=== PATIENT | female | born 1980 | race Caucasian/White ===

== ENCOUNTER 2019-05-19 13:40 | Inpatient (IN) | payer OTHER, MEDICAID, SELFPAY ==
[2019-05-19] VITALS (11 sets, daily range): BP systolic 95–119; BP diastolic 45–80; PULSE 87–113; RESP 12–113; TEMP 36.3–36.7; O2SAT 91–100; BMI 32.9; BMI 30.7
--- NOTE | 2019-05-19 14:15 | ED.OVERDOSE ---
HPI - Overdose General Chief Complaint: Toxicology Problem Stated Complaint: Took too any Asprin Time Seen by Provider: 05/19/19 14:09 Source: patient Mode of arrival: ambulatory Limitations: no limitations History of Present Illness HPI Narrative: This is a 39-year-old female who comes to the emergency department with complaint of aspirin overdose. Patient states between 930 and 10:00 a.m. she took 40-50 tablets 324 mg aspirin. Patient states she took this intentionally in order to kill herself. She states that she is requesting that decision at this time. She is complaining of ringing in her ear, decreased hearing on the right and tingling in her extremity and face. Patient has felt nauseated. She had 1 episode of vomiting with a little bit of blood. She denies any shortness of breath or chest pain, no diarrhea or constipation. No urinary symptoms. No new weakness that she is appreciating at this time. She states that she has a history of psychiatric issues. She also has issues with substance abuse and used methamphetamines 2 days previously. She has been off of her psychiatric medications recently. She also used to take levothyroxine regularly. She little allergies to antibiotics. Positive for tobacco, positive for alcohol but not regularly. Related Data Home Medications Medication Instructions Recorded Confirmed fluoxetine [Prozac] 80 mg PO DAILY 05/19/19 05/19/19 levothyroxine 25 mcg PO DAILY 05/19/19 05/19/19 lorazepam [Ativan] 1 mg PO BEDTIME PRN 05/19/19 05/19/19 Allergies Allergy/AdvReac Type Severity Reaction Status Date / Time amoxicillin Allergy Hives Verified 05/19/19 18:03 Penicillins Allergy Verified 05/19/19 13:45 sulfamethoxazole Allergy Verified 05/19/19 13:45 [From Bactrim] trimethoprim [From Bactrim] Allergy Verified 05/19/19 13:45 Review of Systems Review of Systems ROS Unobtainable: All systems reviewed & are unremarkable except as noted in HPI and below Constitutional Constitutional: Reports anorexia, Denies chills, Denies fever(s), Reports headache(s) (mild), Denies lethargy and Denies weakness ENT Ears, Nose, Mouth, and Throat: Reports abnormal hearing, Denies dizziness, Reports headache(s) (mild) and Reports tinnitus Cardiovascular Cardiovascular: Denies chest pain, Denies chest pain at rest, Denies diaphoresis, Denies syncope, Denies edema, Denies irregular heart rhythm, Denies lightheadedness, Denies palpitations, Denies dyspnea, Denies dyspnea on exertion and Denies orthopnea Respiratory Respiratory: Denies change in phlegm color, Denies chest congestion, Denies cough, Denies dyspnea, Denies dyspnea on exertion, Denies stridor and Denies wheezing Gastrointestinal Gastrointestinal: Denies abdominal pain, Denies hematochezia, Denies change in bowel habits, Denies constipation, Denies diarrhea, Reports nausea, Reports vomiting (1) and Reports hematemesis (small amt of red in emesis x 1) Genitourinary Genitourinary: Denies hematuria, Denies urinary frequency, Denies dysuria, Denies flank pain, Denies urinary incontinence, Denies urinary hesitancy and Denies urinary urgency Musculoskeletal Musculoskeletal: Reports tingling (extremity and face) Integumentary/Breasts Skin/Breast: Denies rash and Denies unusual bruising Neurologic Neurologic: Reports as per HPI, Reports abnormal hearing, Denies confusion, Denies dizziness, Denies syncope, Reports headache(s) (mild), Reports tingling (extremity and face) and Denies weakness Psychiatric Psychiatric: Reports as per HPI, Denies confusion, Denies hallucinations, Denies homicidal ideation and Reports suicidal ideation (suicidal attempt) Endocrine Endocrine: Denies palpitations Allergic/Immunologic Allergic/Immunologic: Denies wheezing [facility] Medical History Anxiety (Acute) Depression (Acute) Miscarriage (Acute) Neck pain, chronic (Acute) PTSD (post-traumatic stress disorder) (Acute) Surgical History History of carpal tunnel surgery (Acute) Social History household members: significant other Smoking Status: Current every day smoker alcohol intake: never Social History household members: significant other Smoking Status: Current every day smoker alcohol intake: never Exam Narrative Exam Narrative: GENERAL: Alert and oriented x three, well-nourished female in mild distress. HEENT: Head normocephalic, atraumatic, EOMI, negative for nystagmus, pupils reactive, face symmetric, moist mucous membranes NECK: Supple, full range of motion CARDIOVASCULAR: Regular rate and rhythm without murmurs, rubs or gallops. RESPIRATORY: Breath sounds equal bilaterally, no wheezes rales or rhonchi. No tachypnea or accessory muscle use. ABDOMEN: Soft, nontender. Normoactive bowel sounds all 4 quadrants. No guarding or rebound, rigidity, no mass : No CVA tenderness EXTREMITIES: Normal range of motion, no clubbing or edema. 2+ pulses upper and lower extremities. Neurovascularly intact NEUROLOGICAL: Cranial nerves II through XII grossly intact. Moving all extremities SKIN: Warm, dry, no petechiae, no rashes or lesions. Initial Vital Signs Initial Vital Signs: Vital Signs Temperature 97.3 F L 05/19/19 13:45 Pulse Rate 103 H 05/19/19 13:45 Respiratory Rate 26 H 05/19/19 13:45 Blood Pressure 119/80 05/19/19 13:45 Pulse Oximetry 97 05/19/19 13:45 Scores GCS Oscar coma scale eye opening: Spontaneous Oscar coma scale verbal response: Orientated Oscar coma scale motor response: Obey commands [place] coma scale total score: 15 Course Orders Ordered: ED Orders 05/19/19 14:00 Acetaminophen Stat Complete Blood Count AUTO DIFF Stat Comprehensive Metabolic Panel Stat Ethanol (ETOH) Stat Hepatic (Liver) Panel Stat Lipase Stat Test Urine Stat Salicylate Stat Troponin & CK Cardiac Panel Stat Urinalysis Sreen (Dip Only) Stat Urine Drug Screen, Rapid Stat 05/19/19 14:28 XR chest 1V Stat 05/19/19 14:49 Arterial Blood Gas Stat 05/19/19 15:00 Lactate (Lactic Acid) Stat Prothrombin Time INR Stat 05/19/19 16:09 Salicylate Stat 05/19/19 20:00 Salicylate Stat Sodium Chloride (Normal Saline 0.9%) 1,000 mls @ 1,000 mls/hr IV BOLUS PRN PRN Reason: Fluid replacement Last Infusion: 05/19/19 16:31 Dose: 0 mls/hr Documented by: Admin: 05/19/19 14:50 Dose: 1,000 mls/hr Documented by: FAYE Sodium Bicarbonate 150 meq/Potassium Chloride 40 meq/Dextrose 1,170 mls @ 200 mls/hr IV CONT COLETTE Last Infusion: 05/19/19 17:33 Dose: 0 mls/hr Documented by: FAYE Cosigned by: VIJAYA Admin: 05/19/19 16:32 Dose: 200 mls/hr Documented by: ESTHER Cosigned by: FAYE Ondansetron HCl (Zofran) 4 mg IV Q4HR PRN PRN Reason: Nausea And Vomiting Discontinued Medications Sodium Chloride (Normal Saline 0.9%) 1,000 mls @ 150 mls/hr IV CONT COLETTE Last Admin: 05/19/19 15:53 Dose: Not Given Documented by: ESTHER Sodium Bicarbonate 150 meq/ (Dextrose) 1,150 mls @ 150 mls/hr IV CONT COLETTE Last Admin: 05/19/19 17:28 Dose: Not Given Documented by: VIJAYA Ondansetron HCl (Zofran) 4 mg IV NOW ONE Stop: 05/19/19 14:28 Last Admin: 05/19/19 14:50 Dose: 4 mg Documented by: FAYE Vital Signs Vital signs: Vital Signs - 8 hr 05/19/19 13:45 05/19/19 14:33 05/19/19 15:00 Temperature 97.3 F L Pulse Rate 103 H 95 H 87 Respiratory Rate 26 H 20 16 Blood Pressure 119/80 Blood Pressure [Left Arm] 111/70 116/68 Pulse Oximetry 97 97 100 05/19/19 15:30 05/19/19 16:02 Temperature Pulse Rate 93 H 90 Respiratory Rate 18 23 Blood Pressure Blood Pressure [Left Arm] 105/77 105/70 Pulse Oximetry 99 99 MDM - Overdose Lab Data Attestation: I reviewed the patient's lab results. Result diagrams: 05/19/19 14:00 05/19/19 18:02 Labs: Lab Results 05/19/19 05/19/19 05/19/19 Range/Units 14:00 14:00 14:00 WBC 9.1 (4.5-11.0) X10^3/uL RBC 4.30 (4.0-5.2) X10^6/uL Hgb 13.7 (12.0-16.0) g/dL Hct 39.5 (36-46) % MCV 91.7 (80-100) fL MCH 31.8 (26-34) PG MCHC 34.7 (30-36) % RDW 13.1 (11.6-14.8) % Plt Count 331 (150-400) X10^3/uL Neut % (Auto) 60.2 (50-75) % Lymph % (Auto) 31.5 (25-40) % Nolan % (Auto) 6.3 (3-14) % Eos % (Auto) 1.6 L (2-4) % Baso % (Auto) 0.4 (0-2) % Neut # (Auto) 5500 (3609-3945) /uL Lymph # (Auto) 2900 (8417-2338) /uL Nolan # (Auto) 600 (0-900) /uL Eos # (Auto) 100 (0-450) /uL Baso # (Auto) 0 (0-100) /uL PT (10.1-12.7) SECONDS INR (0.9-1.3) ABG pH (7.35-7.45) ABG pCO2 (35-45) mmHg ABG pO2 (80-100) mmHg ABG HCO3 (22-26) mmol/L ABG Total CO2 (21-31) mmol/L ABG O2 Saturation (95-100) % ABG Base Excess (-2-2) mmol/L FiO2 Sodium 141 (137-145) mmol/L Potassium 4.0 (3.4-5.1) mmol/L Chloride 107 (98-107) mmol/L Carbon Dioxide 21 L (22-32) mmol/L BUN 9 (7-17) mg/dL Creatinine 0.70 (0.52-1.04) mg/dL Estimated GFR > 60.0 (>60) mL/min BUN/Creatinine Ratio 12.9 (6-22) Glucose 86 (70-100) mg/dL Lactate (0.7-2.1) mmol/L Calcium 9.9 (8.4-10.2) mg/dL Total Bilirubin 0.5 (0.2-1.3) mg/dL Conjugated Bilirubin 0.0 (0.0-0.3) md/dL Unconjugated Bilirubin 0.3 (0.0-1.1) mg/dL AST 19 (14-36) IU/L ALT 11 (9-52) IU/L Alkaline Phosphatase 62 (38-126) U/L Total Creatine Kinase 88 (30-135) U/L CK-MB (CK-2) TNP CK-MB (CK-2) Rel Index TNP Troponin I < 0.012 (0.01-0.034) ng/mL Total Protein 7.3 (6.3-8.2) g/dL Albumin 4.1 (3.5-5.0) g/dL Globulin 3.2 (1.7-4.1) g/dL Albumin/Globulin Ratio 1.3 (1.0-2.8) Lipase 83 (23-300) U/L Urine Color Urine Appearance Urine pH (4.5-8.0) Ur Specific [place] (1.000-1.035) Urine Protein (Negative) Urine Glucose (UA) (Negative) g/dL Urine Ketones (NEGATIVE) Urine Occult Blood (Negative) Urine Nitrate (Negative) Urine Bilirubin (NEGATIVE) Urine Urobilinogen (0.2) E.U./dL Ur Leukocyte Esterase (NEGATIVE) Urine Test (Negative) Salicylates 39.8 H* (<20) mg/dL Urine Opiates Screen (Negative) Ur Oxycodone Screen (Negative) Urine Methadone Screen (Negative) Acetaminophen < 10 L (10-30) ug/mL Ur Barbiturates Screen (Negative) U Tricyclic Antidepress (Negative) Ur Phencyclidine Scrn (Negative) Ur Amphetamines Screen (Negative) U Methamphetamines Scrn (Negative) Ur MDMA Scrn (Ecstasy) (Negative) U Benzodiazepines Scrn (Negative) Urine Cocaine Screen (Negative) U Marijuana (THC) Screen (Negative) Ethyl Alcohol < 10 ( - 10) mg/dL 05/19/19 05/19/19 05/19/19 Range/Units 14:00 14:00 14:00 WBC (4.5-11.0) X10^3/uL RBC (4.0-5.2) X10^6/uL Hgb (12.0-16.0) g/dL Hct (36-46) % MCV (80-100) fL MCH (26-34) PG MCHC (30-36) % RDW (11.6-14.8) % Plt Count (150-400) X10^3/uL Neut % (Auto) (50-75) % Lymph % (Auto) (25-40) % Nolan % (Auto) (3-14) % Eos % (Auto) (2-4) % Baso % (Auto) (0-2) % Neut # (Auto) (2563-9063) /uL Lymph # (Auto) (8275-8386) /uL Nolan # (Auto) (0-900) /uL Eos # (Auto) (0-450) /uL Baso # (Auto) (0-100) /uL PT (10.1-12.7) SECONDS INR (0.9-1.3) ABG pH (7.35-7.45) ABG pCO2 (35-45) mmHg ABG pO2 (80-100) mmHg ABG HCO3 (22-26) mmol/L ABG Total CO2 (21-31) mmol/L ABG O2 Saturation (95-100) % ABG Base Excess (-2-2) mmol/L FiO2 Sodium (137-145) mmol/L Potassium (3.4-5.1) mmol/L Chloride (98-107) mmol/L Carbon Dioxide (22-32) mmol/L BUN (7-17) mg/dL Creatinine (0.52-1.04) mg/dL Estimated GFR (>60) mL/min BUN/Creatinine Ratio (6-22) Glucose (70-100) mg/dL Lactate (0.7-2.1) mmol/L Calcium (8.4-10.2) mg/dL Total Bilirubin (0.2-1.3) mg/dL Conjugated Bilirubin (0.0-0.3) md/dL Unconjugated Bilirubin (0.0-1.1) mg/dL AST (14-36) IU/L ALT (9-52) IU/L Alkaline Phosphatase (38-126) U/L Total Creatine Kinase (30-135) U/L CK-MB (CK-2) CK-MB (CK-2) Rel Index Troponin I (0.01-0.034) ng/mL Total Protein (6.3-8.2) g/dL Albumin (3.5-5.0) g/dL Globulin (1.7-4.1) g/dL Albumin/Globulin Ratio (1.0-2.8) Lipase (23-300) U/L Urine Color Yellow Urine Appearance Clear Urine pH 5.5 (4.5-8.0) Ur Specific [place] <=1.005 (1.000-1.035) Urine Protein Negative (Negative) Urine Glucose (UA) Negative (Negative) g/dL Urine Ketones Negative (NEGATIVE) Urine Occult Blood Negative (Negative) Urine Nitrate Negative (Negative) Urine Bilirubin Negative (NEGATIVE) Urine Urobilinogen 0.2 (0.2) E.U./dL Ur Leukocyte Esterase Negative (NEGATIVE) Urine Test Negative (Negative) Salicylates (<20) mg/dL Urine Opiates Screen Negative (Negative) Ur Oxycodone Screen Negative (Negative) Urine Methadone Screen Negative (Negative) Acetaminophen (10-30) ug/mL Ur Barbiturates Screen Negative (Negative) U Tricyclic Antidepress Negative (Negative) Ur Phencyclidine Scrn Negative (Negative) Ur Amphetamines Screen Positive H (Negative) U Methamphetamines Scrn Positive H (Negative) Ur MDMA Scrn (Ecstasy) Negative (Negative) U Benzodiazepines Scrn Negative (Negative) Urine Cocaine Screen Negative (Negative) U Marijuana (THC) Screen Negative (Negative) Ethyl Alcohol ( - 10) mg/dL 05/19/19 05/19/19 05/19/19 Range/Units 14:49 15:00 15:00 WBC (4.5-11.0) X10^3/uL RBC (4.0-5.2) X10^6/uL Hgb (12.0-16.0) g/dL Hct (36-46) % MCV (80-100) fL MCH (26-34) PG MCHC (30-36) % RDW (11.6-14.8) % Plt Count (150-400) X10^3/uL Neut % (Auto) (50-75) % Lymph % (Auto) (25-40) % Nolan % (Auto) (3-14) % Eos % (Auto) (2-4) % Baso % (Auto) (0-2) % Neut # (Auto) (2463-5270) /uL Lymph # (Auto) (5110-5161) /uL Nolan # (Auto) (0-900) /uL Eos # (Auto) (0-450) /uL Baso # (Auto) (0-100) /uL PT 12.6 (10.1-12.7) SECONDS INR 1.1 (0.9-1.3) ABG pH 7.42 (7.35-7.45) ABG pCO2 33.1 L (35-45) mmHg ABG pO2 102 H (80-100) mmHg ABG HCO3 22 (22-26) mmol/L ABG Total CO2 22 (21-31) mmol/L ABG O2 Saturation 98 (95-100) % ABG Base Excess -3.0 L (-2-2) mmol/L FiO2 0.21 Sodium (137-145) mmol/L Potassium (3.4-5.1) mmol/L Chloride (98-107) mmol/L Carbon Dioxide (22-32) mmol/L BUN (7-17) mg/dL Creatinine (0.52-1.04) mg/dL Estimated GFR (>60) mL/min BUN/Creatinine Ratio (6-22) Glucose (70-100) mg/dL Lactate 0.8 (0.7-2.1) mmol/L Calcium (8.4-10.2) mg/dL Total Bilirubin (0.2-1.3) mg/dL Conjugated Bilirubin (0.0-0.3) md/dL Unconjugated Bilirubin (0.0-1.1) mg/dL AST (14-36) IU/L ALT (9-52) IU/L Alkaline Phosphatase (38-126) U/L Total Creatine Kinase (30-135) U/L CK-MB (CK-2) CK-MB (CK-2) Rel Index Troponin I (0.01-0.034) ng/mL Total Protein (6.3-8.2) g/dL Albumin (3.5-5.0) g/dL Globulin (1.7-4.1) g/dL Albumin/Globulin Ratio (1.0-2.8) Lipase (23-300) U/L Urine Color Urine Appearance Urine pH (4.5-8.0) Ur Specific [place] (1.000-1.035) Urine Protein (Negative) Urine Glucose (UA) (Negative) g/dL Urine Ketones (NEGATIVE) Urine Occult Blood (Negative) Urine Nitrate (Negative) Urine Bilirubin (NEGATIVE) Urine Urobilinogen (0.2) E.U./dL Ur Leukocyte Esterase (NEGATIVE) Urine Test (Negative) Salicylates (<20) mg/dL Urine Opiates Screen (Negative) Ur Oxycodone Screen (Negative) Urine Methadone Screen (Negative) Acetaminophen (10-30) ug/mL Ur Barbiturates Screen (Negative) U Tricyclic Antidepress (Negative) Ur Phencyclidine Scrn (Negative) Ur Amphetamines Screen (Negative) U Methamphetamines Scrn (Negative) Ur MDMA Scrn (Ecstasy) (Negative) U Benzodiazepines Scrn (Negative) Urine Cocaine Screen (Negative) U Marijuana (THC) Screen (Negative) Ethyl Alcohol ( - 10) mg/dL 05/19/19 Range/Units 16:09 WBC (4.5-11.0) X10^3/uL RBC (4.0-5.2) X10^6/uL Hgb (12.0-16.0) g/dL Hct (36-46) % MCV (80-100) fL MCH (26-34) PG MCHC (30-36) % RDW (11.6-14.8) % Plt Count (150-400) X10^3/uL Neut % (Auto) (50-75) % Lymph % (Auto) (25-40) % Nolan % (Auto) (3-14) % Eos % (Auto) (2-4) % Baso % (Auto) (0-2) % Neut # (Auto) (0804-4703) /uL Lymph # (Auto) (0185-6994) /uL Nolan # (Auto) (0-900) /uL Eos # (Auto) (0-450) /uL Baso # (Auto) (0-100) /uL PT (10.1-12.7) SECONDS INR (0.9-1.3) ABG pH (7.35-7.45) ABG pCO2 (35-45) mmHg ABG pO2 (80-100) mmHg ABG HCO3 (22-26) mmol/L ABG Total CO2 (21-31) mmol/L ABG O2 Saturation (95-100) % ABG Base Excess (-2-2) mmol/L FiO2 Sodium (137-145) mmol/L Potassium (3.4-5.1) mmol/L Chloride (98-107) mmol/L Carbon Dioxide (22-32) mmol/L BUN (7-17) mg/dL Creatinine (0.52-1.04) mg/dL Estimated GFR (>60) mL/min BUN/Creatinine Ratio (6-22) Glucose (70-100) mg/dL Lactate (0.7-2.1) mmol/L Calcium (8.4-10.2) mg/dL Total Bilirubin (0.2-1.3) mg/dL Conjugated Bilirubin (0.0-0.3) md/dL Unconjugated Bilirubin (0.0-1.1) mg/dL AST (14-36) IU/L ALT (9-52) IU/L Alkaline Phosphatase (38-126) U/L Total Creatine Kinase (30-135) U/L CK-MB (CK-2) CK-MB (CK-2) Rel Index Troponin I (0.01-0.034) ng/mL Total Protein (6.3-8.2) g/dL Albumin (3.5-5.0) g/dL Globulin (1.7-4.1) g/dL Albumin/Globulin Ratio (1.0-2.8) Lipase (23-300) U/L Urine Color Urine Appearance Urine pH (4.5-8.0) Ur Specific [place] (1.000-1.035) Urine Protein (Negative) Urine Glucose (UA) (Negative) g/dL Urine Ketones (NEGATIVE) Urine Occult Blood (Negative) Urine Nitrate (Negative) Urine Bilirubin (NEGATIVE) Urine Urobilinogen (0.2) E.U./dL Ur Leukocyte Esterase (NEGATIVE) Urine Test (Negative) Salicylates 38.7 H* (<20) mg/dL Urine Opiates Screen (Negative) Ur Oxycodone Screen (Negative) Urine Methadone Screen (Negative) Acetaminophen (10-30) ug/mL Ur Barbiturates Screen (Negative) U Tricyclic Antidepress (Negative) Ur Phencyclidine Scrn (Negative) Ur Amphetamines Screen (Negative) U Methamphetamines Scrn (Negative) Ur MDMA Scrn (Ecstasy) (Negative) U Benzodiazepines Scrn (Negative) Urine Cocaine Screen (Negative) U Marijuana (THC) Screen (Negative) Ethyl Alcohol ( - 10) mg/dL ABG Data ABG results: PH of 7.42 pCO2 of 33 with a PaO2 102 and a bicarb of 22. Base excess is -3 on FiO2 of 0.21 Interpretation: primary respiratory alkalosis with partial metabolic acidosis compensation Imaging Data Chest x-ray: Radiologist's impression: [address] [address] XRay Report Signed Patient: Suki Lantigua MMR#: [id number] : 1980Acct:[id number] Age/Sex: 39 / FDate of Service: 05/19/19 Loc: ED Accession Number: [id number] Procedure: XR chest 1V Ordering Provider: No Eldridge D.O. PROCEDURE: XR CHEST 1V INDICATIONS: overdose asa TECHNIQUE: One view of the chest was acquired. COMPARISON: None. FINDINGS: Surgical changes and devices: None. Lungs and pleura: Lungs are clear. No pleural effusions or pneumothorax. Mediastinum: Mediastinal contours appear normal. Heart size is normal. Bones and chest wall: No suspicious bony lesions. Overlying soft tissues appear unremarkable. IMPRESSION: No acute disease Dictated by: El Lopez M.D. on 05/19/2019 at 14:59 Approved by: El Lopez M.D. on 05/19/2019 at 15:01 ECG Data Attestation: I personally reviewed and interpreted this ECG as follows: Interpretation: Sinus rhythm with a rate of 96 P are 153 QRS 87 and QTC of 415. No ST elevation or depression MDM Narrative Medical decision making narrative: Patient comes in with acute intentional salicylate ingestion which shows toxicity clinically with her description of tinnitus as well as our aspirin level being elevated. Poison Control was consulted they recommend urine alkalinization, serial lytes including potassium with recommendation to replace potassium if below 3.5, along with salicylate level q.2 hours. They do not recommend charcoal at this time. Poison control did fax over [facility] to follow and this was shared with pharmacy and hospitalists. Spoke with Dr. Flores who accepts. Discussed poison control recommendations. Discharge Plan Departure Patient Disposition: Admitted As Inpatient Clinical Impression: Poisoning, salicylate Discharge Date/Time: 05/19/19 17:30 Admit Date/Time: 05/19/19 16:59 Admit Provider: Alondra Flores
--- NOTE | 2019-05-19 14:28 | DI.RAD.S_ITS ---
PROCEDURE: XR CHEST 1V INDICATIONS: overdose asa TECHNIQUE: One view of the chest was acquired. COMPARISON: None. FINDINGS: Surgical changes and devices: None. Lungs and pleura: Lungs are clear. No pleural effusions or pneumothorax. Mediastinum: Mediastinal contours appear normal. Heart size is normal. Bones and chest wall: No suspicious bony lesions. Overlying soft tissues appear unremarkable. IMPRESSION: No acute disease Dictated by: El Lopez M.D. on 05/19/2019 at 14:59 Approved by: El Lopez M.D. on 05/19/2019 at 15:01
[2019-05-19 14:43] LABS: Creatine Kinase 88 U/L (30-135); Lipase 83 U/L (23-300)
[2019-05-19 14:49] LABS: Acetaminophen < 10 ug/mL (10-30); Alanine Aminotransferase 11 IU/L (9-52); Albumin 4.1 g/dL (3.5-5.0); Albumin Globulin Ratio 1.3 (1.0-2.8); Alkaline Phosphatase 62 U/L (38-126); Aspartate Aminotransferase 19 IU/L (14-36); BUN Creatinine Ratio 12.9 (6-22); Bilirubin Total 0.5 mg/dL (0.2-1.3); Bilirubin Unconjugated 0.3 mg/dL (0.0-1.1); Blood Urea Nitrogen 9 mg/dL (7-17); Calcium 9.9 mg/dL (8.4-10.2); Carbon Dioxide 21 mmol/L (22-32); Chloride 107 mmol/L (98-107); Estimated Glomerular Filt Rate > 60.0 mL/min (>60); Ethanol (ETOH) < 10 mg/dL; Globulin 3.2 g/dL (1.7-4.1); Glucose 86 mg/dL (70-100); HEMOLYSIS < 15 (0-50); Sodium 141 mmol/L (137-145); Total Protein 7.3 g/dL (6.3-8.2)
[2019-05-19] MEDS: SODIUM CHLORIDE 0.9% 1,000 ML 1000 ML IV (14:50)
[2019-05-19] MEDS: ONDANSETRON 4 MG/2 ML INJ IV (14:50)
[2019-05-19 14:52] LABS: Add Manual Diff / Slide Review NO; Basophils Absolute Auto 0 /uL (0-100); Basophils Percent Auto 0.4 % (0-2); Eosinophils Absolute Auto 100 /uL (0-450); Eosinophils Percent Auto 1.6 % (2-4); Hematocrit 39.5 % (36-46); Hemoglobin 13.7 g/dL (12.0-16.0); Lymphocytes Absolute Auto 2900 /uL (1100-4500); Lymphocytes Percent Auto 31.5 % (25-40); Mean Corpuscular HGB Conc 34.7 % (30-36); Mean Corpuscular Hemoglobin 31.8 PG (26-34); Mean Corpuscular Volume 91.7 fL (80-100); Monocytes Absolute Auto 600 /uL (0-900); Monocytes Percent Auto 6.3 % (3-14); Neutrophils Absolute Auto 5500 /uL (1500-7000); Neutrophils Percent Auto 60.2 % (50-75); Platelet Count 331 X10^3/uL (150-400); Red Cell Distribution Width 13.1 % (11.6-14.8); White Blood Cell Count 9.1 X10^3/uL (4.5-11.0)
[2019-05-19 14:56] LABS: Troponin I < 0.012 ng/mL (0.01-0.034)
[2019-05-19 15:06] LABS: Salicylate 39.8 mg/dL (<20); Urine Amphetamines Positive (Negative); Urine Barbiturates Negative (Negative); Urine Benzodiazepines Negative (Negative); Urine Cocaine Negative (Negative); Urine MDMA Negative (Negative); Urine Methadone Negative (Negative); Urine Methamphetamines Positive (Negative); Urine Morphine/Opi cutoff 2000 Negative (Negative); Urine Oxycodone Negative (Negative); Urine Phencyclidine Negative (Negative); Urine Tetrahydrocannabinol Negative (Negative); Urine Tricyclic Antidepressant Negative (Negative)
--- NOTE | 2019-05-19 15:06 | PC.NURSE ---
stopped taking prozac 80mg one and a half months ago. states she needs a prescription filled. worried about early menopause. thyroid issues. recently moved here in March 2019 from [place].
[2019-05-19 15:18] LABS: INR 1.1 (0.9-1.3); Prothrombin Time 12.6 SECONDS (10.1-12.7)
[2019-05-19 15:25] LABS: Lactate (Lactic Acid) 0.8 mmol/L (0.7-2.1)
[2019-05-19 15:36] LABS: Appearance Urine UA CLEAR; Bilirubin Urine UA NEGATIVE (NEGATIVE); Color Urine UA YELLOW; Glucose Urine UA NEGATIVE (Negative); Ketones Urine UA NEGATIVE (NEGATIVE); Leukocyte Esterase Urine UA NEGATIVE (NEGATIVE); Nitrite Urine UA NEGATIVE (Negative); Occult Blood Urine UA NEGATIVE (Negative); Protein Urine UA NEGATIVE (Negative); Specific Gravity Urine UA <=1.005 (1.000-1.035); Urobilinogen Urine UA 0.2 E.U./dL (0.2); pH Urine UA 5.5 (4.5-8.0)
[2019-05-19 15:41] LABS: Pregnancy Test Urine Negative (Negative)
--- NOTE | 2019-05-19 16:07 | PC.NURSE ---
1530: call placed to poison control on pt's arrival by FAMILIA Tan. Spoke to Jaquan who told to call back with ASA level. on completion of level poison control was contacted again by this RN. Per Jaquan, VBG is to be obtained. ABG already obtained and resulting. pH 7.42. pt AAOx3 at this time. RR even and unlabored. Advised to hang Bicarb gtt + 40mEq K+. recommendations obtained via fax from poison control. Pharmacist consulted with Dr Eldridge and orders obtained. awaiting gtt from pharm. NS bolus continues to infuse at this time. Lab in to draw 2nd ASA level. ASA level to be drawn Q2 hrs until ASA level <or = to 30. pt OOB to BR at this time. aware that all urines need to be obtained by RN. steady gait. 1620: Bicarb gtt obtained and infusing. NAD. New urine obtained and sent for baseline urine pH.
[2019-05-19 16:16] LABS: PCO2 ABG 33.1 mmHg (35-45); pH ABG 7.42 (7.35-7.45)
[2019-05-19 16:17] LABS: HCO3 ABG 22 mmol/L (22-26); Oxygen Saturation ABG 98 % (95-100); PO2 ABG 102 mmHg (80-100); TCO2 ABG 22 mmol/L (21-31)
[2019-05-19 16:18] LABS: Fractionated Inspired Oxygen 0.21
[2019-05-19 16:29] LABS: Salicylate 38.7 mg/dL (<20)
[2019-05-19] MEDS: SODIUM BICARB 8.4% VIAL 150 MEQ, POTASSIUM CHLORIDE 40 MEQ in DEXTROSE 5% WATER 1,000 ML 200 MEQ IV (16:32)
[2019-05-19 18:21] LABS: Carbon Dioxide 23 mmol/L (22-32); Chloride 109 mmol/L (98-107); HEMOLYSIS < 15 (0-50); Potassium 3.7 mmol/L (3.4-5.1); Sodium 142 mmol/L (137-145)
[2019-05-19 18:24] LABS: Salicylate 34.4 mg/dL (<20)
[2019-05-19 20:46] LABS: Salicylate 29.5 mg/dL (<20)
[2019-05-19 21:38] LABS: BUN Creatinine Ratio 11.3 (6-22); Blood Urea Nitrogen 9 mg/dL (7-17); Calcium 8.4 mg/dL (8.4-10.2); Carbon Dioxide 25 mmol/L (22-32); Chloride 110 mmol/L (98-107); Estimated Glomerular Filt Rate > 60.0 mL/min (>60); Glucose 98 mg/dL (70-100); HEMOLYSIS < 15 (0-50); Potassium 3.4 mmol/L (3.4-5.1); Sodium 140 mmol/L (137-145)
--- NOTE | 2019-05-19 22:01 | PC.NURSE ---
Addendum entered by Vesna Galindo R.N. 05/19/19 23:38: 2330 - Poison Control Center called in to check pt status. Updated to most recent labs, abg, vitals, pt status and complaints. Recommended repeat labs times, Hospitalist, Kandace, notified of control center recommendations. Original Note: 1739 - Pt to room from ER. Able to stand and transfer self to bed. Pt reports dizziness, tinnitus, a fullness in ear that makes hearing more difficult. She reports intermittent nausea and feeling hot and then cold. Pt states that she has never attempted suicide before and feels that is was hormones. Pt reports hx of early onset menopause and well as having moved and has not been taking her regular medications due to lack of PCP and insurance. Pt reports hx of anxiety, depression and PTSD. Her routine meds are Prozac, Ativan, and Levothyroxine. She says it has been approximately a month and a half since last dose. Pt is calm and cooperative. Reports feeling embarrassed. States that I am sure I will be fine once I get back on my meds. Pt denies SI at this time. Pt denies feeling unsafe in her home environment. Home environment is reported as sleeping in a van with access to an apartment as needed. Pt oriented to room and routine. Educated to suicide precautions, safety and call light use. Call light in reach. Bed alarm on.
[2019-05-19] MEDS: KCL 20 MEQ IN NS 1,000 ML 125 MEQ IV (22:23)
[2019-05-19 23:09] LABS: pH ABG 7.44 (7.35-7.45)
[2019-05-19 23:10] LABS: Fractionated Inspired Oxygen 21; HCO3 ABG 24 mmol/L (22-26); Oxygen Saturation ABG 97 % (95-100); PCO2 ABG 34.8 mmHg (35-45); PO2 ABG 85 mmHg (80-100); TCO2 ABG 25 mmol/L (21-31)
[2019-05-20] VITALS (16 sets, daily range): BP systolic 87–121; BP diastolic 41–72; PULSE 77–98; RESP 16–20; TEMP 36.7–37.6; O2SAT 94–98
[2019-05-20 00:47] LABS: BUN Creatinine Ratio 11.3 (6-22); Blood Urea Nitrogen 9 mg/dL (7-17); Calcium 8.2 mg/dL (8.4-10.2); Carbon Dioxide 25 mmol/L (22-32); Chloride 110 mmol/L (98-107); Estimated Glomerular Filt Rate > 60.0 mL/min (>60); Glucose 77 mg/dL (70-100); HEMOLYSIS < 15 (0-50); Magnesium 2.1 mg/dL (1.6-2.3); Potassium 3.4 mmol/L (3.4-5.1); Sodium 140 mmol/L (137-145)
[2019-05-20] MEDS: POTASSIUM CHLORIDE 20 MEQ in SODIUM CHLORIDE 0.9% 250 ML 130 ML IV (01:58)
--- NOTE | 2019-05-20 02:51 | P.HP_ITS ---
History of Present Illness History of Present Illness Date Patient Seen: 05/20/19 Time Patient Seen: 02:52 Chief complaint: Took too any Asprin Narrative: The patient is a 39-year-old female with PMH of anxiety, depression, PTSD, hypothyroidism, prior history of heavy ETOH use, and methamphetamine use. The patient presented to the ED out of concern for aspirin overdose. Patient reports ingesting 40-50 tablets of 325 mg of ASA between 9:30 and 10:00 a.m. on 05/19/2019. Ingestion was intentional by patient's report, which she attributes to multiple life stressors, such as moving, lack of employment, and family affairs. Patient states that she has a longstanding history of depression, since childhood. Denies suicidal ideation or prior suicidal at times. There has not been a change in her antidepressants. She reports feeling more depressed in lieu of recent life changes. She has been on Prozac 80 mg for an extended period of time; however, has not taken the medication for the past 30-60 days due to change in insurance. At time of the interview patient has denied desired to harm self. Patient admits to 5 year history of intermittent methamphetamine use (smokes). Last use on day of ED presentation. Within 20 minutes of aspirin ingestion patient reports feeling weak and nauseated. Reports developing symptoms of a headache, diminished hearing, tinnitus, abdominal pain and tingling in hands and feet (bilaterally). Patient's boyfriend has learned of the ingestion and brought patient to the ED. Patient does report 1 episode of hematemesis. Patient did not exhibit neurological manifestations of confusion, slurred speech or hallucinations. She was not obtunded and did not suffer from seizure activity. Salicylate level on pr esentation to the ED was 39.8. ED presentation and workup Labs, 05/19 @ 1400 WBC 9.1 HGB 13.7 PLT 331 PT 12.6 INR 1.1 NA 140 K 4.0 Cl 107 Ca 9.9 Glu 86 CO2 21 BUN 9 Cr 0.7 AST 19 ALT 11 Alk Phos 62 T.Bili 0.5 Lipase 83 Lactate 0.8 Trop < 0.012 UA unremarkable for infection, urine pH 5.5 Salicylate level trend 39.8 -> 38.7 -> 34.4 -> 29.5 Acetaminophen level less than 10 UDS positive for amphetamines, methamphetamine ABG, 05/19 @ 14:49... pH 7.42 pCO2 33.1 pO2 102 HCO3 22 CXR no acute cardiopulmonary findings Patient History Medical History Anxiety (Acute) Depression (Acute) Miscarriage (Acute) Neck pain, chronic (Acute) PTSD (post-traumatic stress disorder) (Acute) Surgical History History of carpal tunnel surgery (Acute) Social History household members: significant other Smoking Status: Current every day smoker alcohol intake: never Family & Social History Family History (Updated 05/20/19 @ 04:51 by COTY Wilkerson) Mother Depression Grandmother Bipolar affect, depressed Brain aneurysm Social History: household members significant other Prior Living Arrangements Apartment/Condo Safety & Behavioral: Feels Safe in Current Yes Environment Been Physically Hurt or No Threatened By a Person Suicidal Ideation Description None Suicide Plan Description No Plan Tobacco & Substance use: Smoking Status Current every day smoker, 1/2-1 ppd. Has been smoking since age of 11 Smoking packs per day 1 alcohol intake prior EtOH abuse, reports drinking 750 ml of liquor daily for 1-2 years. Substance Use Type methamphetamine, smokes, denies injectable use Meds Home Medications and Allergies Home Medications Medication Instructions Recorded Confirmed Type fluoxetine [Prozac] 80 mg PO DAILY 05/19/19 05/19/19 History levothyroxine 25 mcg PO DAILY 05/19/19 05/19/19 History lorazepam [Ativan] 1 mg PO BEDTIME PRN 05/19/19 05/19/19 History Allergies Allergy/AdvReac Type Severity Reaction Status Date / Time amoxicillin Allergy Hives Verified 05/19/19 18:03 Penicillins Allergy Verified 05/19/19 13:45 sulfamethoxazole Allergy Verified 05/19/19 13:45 [From Bactrim] trimethoprim [From Bactrim] Allergy Verified 05/19/19 13:45 Review of Systems Review of Systems ROS Unobtainable: All systems reviewed & are unremarkable except as noted in HPI and below Exam Vital Signs (past 8 hours): - 05/19/19 19:00 05/19/19 21:00 05/19/19 22:00 Temperature Pulse Rate 113 H 91 H 91 H Respiratory Rate 113 H 20 16 Blood Pressure 100/55 L 96/45 L 95/50 L Pulse Oximetry 100 91 92 05/20/19 00:00 05/20/19 01:00 05/20/19 02:00 Temperature 99.3 F 99.5 F Pulse Rate 87 90 90 Respiratory Rate 17 17 18 Blood Pressure 101/56 L 96/47 L 100/56 L Pulse Oximetry 95 95 96 Oxygen Delivery Method Room Air Oxygen Flow Rate 0 Narrative Exam Narrative: Constitutional: NAD Neurologic: AOx3, no focal neurological deficits Head: NC, AT Eyes: PERRL, EOMI, Ears: external ears normal, Nose: external nose normal, no rhinorrhea or epistaxis Throat: Dry MM, oropharynx w/o exudate Neck: no masses, lymphadenopathy, or JVD Chest / Respiratory: equal chest rise, unlabored respiratory effort, no dyspnea or tachypnea, diminished bases, on room air Heart / CV: S1S2, no murmur Abdomen / GI: round, NT, ND, + BS, no organomegaly : no suprapubic tenderness, no CVA Peripheral / Vascular: warm to touch, DP and PT pulses palpable, no edema Musc: full ROM of upper and lower extremities, adequate muscle tone and bulk Skin: no ecchymosis or suspicious lesions / ulcers Objective Labs Result Diagrams: 05/19/19 14:00 05/20/19 00:25 Labs: Laboratory Results - last 24 hr 05/19/19 05/19/19 05/19/19 14:00 14:00 14:00 WBC 9.1 RBC 4.30 Hgb 13.7 Hct 39.5 MCV 91.7 MCH 31.8 MCHC 34.7 RDW 13.1 Plt Count 331 Neut % (Auto) 60.2 Lymph % (Auto) 31.5 Jackson % (Auto) 6.3 Eos % (Auto) 1.6 L Baso % (Auto) 0.4 Neut # (Auto) 5500 Lymph # (Auto) 2900 Jackson # (Auto) 600 Eos # (Auto) 100 Baso # (Auto) 0 PT INR ABG pH ABG pCO2 ABG pO2 ABG HCO3 ABG Total CO2 ABG O2 Saturation ABG Base Excess FiO2 Sodium 141 Potassium 4.0 Chloride 107 Carbon Dioxide 21 L BUN 9 Creatinine 0.70 Estimated GFR > 60.0 BUN/Creatinine Ratio 12.9 Glucose 86 Lactate Calcium 9.9 Magnesium Total Bilirubin 0.5 Conjugated Bilirubin 0.0 Unconjugated Bilirubin 0.3 AST 19 ALT 11 Alkaline Phosphatase 62 Total Creatine Kinase 88 CK-MB (CK-2) TNP CK-MB (CK-2) Rel Index TNP Troponin I < 0.012 Total Protein 7.3 Albumin 4.1 Globulin 3.2 Albumin/Globulin Ratio 1.3 Lipase 83 Urine Color Urine Appearance Urine pH Ur Specific [place] Urine Protein Urine Glucose (UA) Urine Ketones Urine Occult Blood Urine Nitrate Urine Bilirubin Urine Urobilinogen Ur Leukocyte Esterase Urine Test Nasal Screen MRSA (PCR) Salicylates 39.8 H* Urine Opiates Screen Ur Oxycodone Screen Urine Methadone Screen Acetaminophen < 10 L Ur Barbiturates Screen U Tricyclic Antidepress Ur Phencyclidine Scrn Ur Amphetamines Screen U Methamphetamines Scrn Ur MDMA Scrn (Ecstasy) U Benzodiazepines Scrn Urine Cocaine Screen U Marijuana (THC) Screen Ethyl Alcohol < 10 05/19/19 05/19/19 05/19/19 14:00 14:00 14:00 WBC RBC Hgb Hct MCV MCH MCHC RDW Plt Count Neut % (Auto) Lymph % (Auto) [place] % (Auto) Eos % (Auto) Baso % (Auto) Neut # (Auto) Lymph # (Auto) [place] # (Auto) Eos # (Auto) Baso # (Auto) PT INR ABG pH ABG pCO2 ABG pO2 ABG HCO3 ABG Total CO2 ABG O2 Saturation ABG Base Excess FiO2 Sodium Potassium Chloride Carbon Dioxide BUN Creatinine Estimated GFR BUN/Creatinine Ratio Glucose Lactate Calcium Magnesium Total Bilirubin Conjugated Bilirubin Unconjugated Bilirubin AST ALT Alkaline Phosphatase Total Creatine Kinase CK-MB (CK-2) CK-MB (CK-2) Rel Index Troponin I Total Protein Albumin Globulin Albumin/Globulin Ratio Lipase Urine Color Yellow Urine Appearance Clear Urine pH 5.5 Ur Specific [place] <=1.005 Urine Protein Negative Urine Glucose (UA) Negative Urine Ketones Negative Urine Occult Blood Negative Urine Nitrate Negative Urine Bilirubin Negative Urine Urobilinogen 0.2 Ur Leukocyte Esterase Negative Urine Test Negative Nasal Screen MRSA (PCR) Salicylates Urine Opiates Screen Negative Ur Oxycodone Screen Negative Urine Methadone Screen Negative Acetaminophen Ur Barbiturates Screen Negative U Tricyclic Antidepress Negative Ur Phencyclidine Scrn Negative Ur Amphetamines Screen Positive H U Methamphetamines Scrn Positive H Ur MDMA Scrn (Ecstasy) Negative U Benzodiazepines Scrn Negative Urine Cocaine Screen Negative U Marijuana (THC) Screen Negative Ethyl Alcohol 05/19/19 05/19/19 05/19/19 14:49 15:00 15:00 WBC RBC Hgb Hct MCV MCH MCHC RDW Plt Count Neut % (Auto) Lymph % (Auto) [place] % (Auto) Eos % (Auto) Baso % (Auto) Neut # (Auto) Lymph # (Auto) [place] # (Auto) Eos # (Auto) Baso # (Auto) PT 12.6 INR 1.1 ABG pH 7.42 ABG pCO2 33.1 L ABG pO2 102 H ABG HCO3 22 ABG Total CO2 22 ABG O2 Saturation 98 ABG Base Excess -3.0 L FiO2 0.21 Sodium Potassium Chloride Carbon Dioxide BUN Creatinine Estimated GFR BUN/Creatinine Ratio Glucose Lactate 0.8 Calcium Magnesium Total Bilirubin Conjugated Bilirubin Unconjugated Bilirubin AST ALT Alkaline Phosphatase Total Creatine Kinase CK-MB (CK-2) CK-MB (CK-2) Rel Index Troponin I Total Protein Albumin Globulin Albumin/Globulin Ratio Lipase Urine Color Urine Appearance Urine pH Ur Specific [place] Urine Protein Urine Glucose (UA) Urine Ketones Urine Occult Blood Urine Nitrate Urine Bilirubin Urine Urobilinogen Ur Leukocyte Esterase Urine Test Nasal Screen MRSA (PCR) Salicylates Urine Opiates Screen Ur Oxycodone Screen Urine Methadone Screen Acetaminophen Ur Barbiturates Screen U Tricyclic Antidepress Ur Phencyclidine Scrn Ur Amphetamines Screen U Methamphetamines Scrn Ur MDMA Scrn (Ecstasy) U Benzodiazepines Scrn Urine Cocaine Screen U Marijuana (THC) Screen Ethyl Alcohol 05/19/19 05/19/19 05/19/19 16:09 18:02 18:02 WBC RBC Hgb Hct MCV MCH MCHC RDW Plt Count Neut % (Auto) Lymph % (Auto) [place] % (Auto) Eos % (Auto) Baso % (Auto) Neut # (Auto) Lymph # (Auto) [place] # (Auto) Eos # (Auto) Baso # (Auto) PT INR ABG pH ABG pCO2 ABG pO2 ABG HCO3 ABG Total CO2 ABG O2 Saturation ABG Base Excess FiO2 Sodium 142 Potassium 3.7 Chloride 109 H Carbon Dioxide 23 BUN Creatinine Estimated GFR BUN/Creatinine Ratio Glucose Lactate Calcium Magnesium Total Bilirubin Conjugated Bilirubin Unconjugated Bilirubin AST ALT Alkaline Phosphatase Total Creatine Kinase CK-MB (CK-2) CK-MB (CK-2) Rel Index Troponin I Total Protein Albumin Globulin Albumin/Globulin Ratio Lipase Urine Color Urine Appearance Urine pH Ur Specific [place] Urine Protein Urine Glucose (UA) Urine Ketones Urine Occult Blood Urine Nitrate Urine Bilirubin Urine Urobilinogen Ur Leukocyte Esterase Urine Test Nasal Screen MRSA (PCR) Salicylates 38.7 H* 34.4 H* Urine Opiates Screen Ur Oxycodone Screen Urine Methadone Screen Acetaminophen Ur Barbiturates Screen U Tricyclic Antidepress Ur Phencyclidine Scrn Ur Amphetamines Screen U Methamphetamines Scrn Ur MDMA Scrn (Ecstasy) U Benzodiazepines Scrn Urine Cocaine Screen U Marijuana (THC) Screen Ethyl Alcohol 05/19/19 05/19/19 05/19/19 18:06 20:24 20:24 WBC RBC Hgb Hct MCV MCH MCHC RDW Plt Count Neut % (Auto) Lymph % (Auto) [place] % (Auto) Eos % (Auto) Baso % (Auto) Neut # (Auto) Lymph # (Auto) [place] # (Auto) Eos # (Auto) Baso # (Auto) PT INR ABG pH ABG pCO2 ABG pO2 ABG HCO3 ABG Total CO2 ABG O2 Saturation ABG Base Excess FiO2 Sodium 140 Potassium 3.4 Chloride 110 H Carbon Dioxide 25 BUN 9 Creatinine 0.80 Estimated GFR > 60.0 BUN/Creatinine Ratio 11.3 Glucose 98 Lactate Calcium 8.4 Magnesium Total Bilirubin Conjugated Bilirubin Unconjugated Bilirubin AST ALT Alkaline Phosphatase Total Creatine Kinase CK-MB (CK-2) CK-MB (CK-2) Rel Index Troponin I Total Protein Albumin Globulin Albumin/Globulin Ratio Lipase Urine Color Urine Appearance Urine pH Ur Specific [place] Urine Protein Urine Glucose (UA) Urine Ketones Urine Occult Blood Urine Nitrate Urine Bilirubin Urine Urobilinogen Ur Leukocyte Esterase Urine Test Nasal Screen MRSA (PCR) Negative for mrsa Salicylates 29.5 H Urine Opiates Screen Ur Oxycodone Screen Urine Methadone Screen Acetaminophen Ur Barbiturates Screen U Tricyclic Antidepress Ur Phencyclidine Scrn Ur Amphetamines Screen U Methamphetamines Scrn Ur MDMA Scrn (Ecstasy) U Benzodiazepines Scrn Urine Cocaine Screen U Marijuana (THC) Screen Ethyl Alcohol 05/19/19 05/20/19 05/20/19 22:49 00:25 00:25 WBC RBC Hgb Hct MCV MCH MCHC RDW Plt Count Neut % (Auto) Lymph % (Auto) [place] % (Auto) Eos % (Auto) Baso % (Auto) Neut # (Auto) Lymph # (Auto) [place] # (Auto) Eos # (Auto) Baso # (Auto) PT INR ABG pH 7.44 ABG pCO2 34.8 L ABG pO2 85 ABG HCO3 24 ABG Total CO2 25 ABG O2 Saturation 97 ABG Base Excess 0.0 FiO2 21 Sodium 140 Potassium 3.4 Chloride 110 H Carbon Dioxide 25 BUN 9 Creatinine 0.80 Estimated GFR > 60.0 BUN/Creatinine Ratio 11.3 Glucose 77 Lactate Calcium 8.2 L Magnesium 2.1 Total Bilirubin Conjugated Bilirubin Unconjugated Bilirubin AST ALT Alkaline Phosphatase Total Creatine Kinase CK-MB (CK-2) CK-MB (CK-2) Rel Index Troponin I Total Protein Albumin Globulin Albumin/Globulin Ratio Lipase Urine Color Urine Appearance Urine pH Ur Specific [place] Urine Protein Urine Glucose (UA) Urine Ketones Urine Occult Blood Urine Nitrate Urine Bilirubin Urine Urobilinogen Ur Leukocyte Esterase Urine Test Nasal Screen MRSA (PCR) Salicylates Urine Opiates Screen Ur Oxycodone Screen Urine Methadone Screen Acetaminophen Ur Barbiturates Screen U Tricyclic Antidepress Ur Phencyclidine Scrn Ur Amphetamines Screen U Methamphetamines Scrn Ur MDMA Scrn (Ecstasy) U Benzodiazepines Scrn Urine Cocaine Screen U Marijuana (THC) Screen Ethyl Alcohol Assessment & Plan Assessment & Plan narrative: Patient is being admitted for salicylate toxicity and intentional drug overdose / self-harm. Salicylate poisoning (mild with salicylate level of 39.8) d/t desire for self harm, present on admission, active initial labs fairly normal. There were no overt electrolyte abnormalities. Borderline metabolic acidosis, CO2 21. Lactate WNL. No leukocytosis or thrombocytopenia. Renal and liver function within normal limits. patient is not exhibiting any signs of end-organ damage, rhabdo mild losses, pulmonary edema, cerebral edema, or renal failure. She has not had any seizure activity. - Aggressive IVF resuscitation and serum alkalization, started on D5 w/ 3 amps of bicarb and KCl, to continue until salicylate level is less than 30. Thereafter, will change to an isotonic fluid at a rate to maintain urine output of 2-3 mls per kg per hour. - Monitor and correct electrolyte and metabolic abnormalities. BMP and Mg scheduled for 1:00 a.m. - EKG to evaluate for dysrhythmia - Supportive care: antiemetics as needed, benzodiazepines as needed for seizure activity - Repeat labs CMP, CBC, coags, and salicylate level 12 hours post alkalization (done on 05/19/2019 at 22:30) - Trend salicylate level - Poison Control has been notified Addendum, 05/20/19 @ 0507 Alkalinization was completed on 05/19/19 @ 22:30, will repeat labs on 05/20 at 1230 am (CMP, salicylate level, coags). Patient was transitioned to normal saline with 20 KCL at 150 per hour. She has had 400 mls of urine output since arriving to the ICU. Will bladder scan this morning. Her BMP, Mag, and ABG checked post alkalinization, remained stable. Patient did require a 20 KCL rider in addition to isotonic fluids with KCl. Continuing to trend electrolytes, and replete accordingly. Patient has not had any neurological changes overnight. No further episodes of hematemesis. No arrhythmia. She is in sinus rhythm with heart rate in the 90s. SBP mid 90s to low 100 mmHg. Patient reports dizziness with position change. Tinnitus has improved, but still present. Nausea has subsided. Tingling in hands and feet has also improved. She has sufficiently awake and coherent. GCS is 15. Will advance diet to liquids. If tolerates, may advance to full /heart healthy diet later in the day. If patient's labs remained stable and she is cleared by Psychiatry, she may potentially be discharged in the evening. Suicide attempts by salicylate overdose, acute condition, present on admission, active No prior history of self-harm. Risk factors of depression and family history of psychiatric illness - suicide precautions and one-to-one status - consult Psychiatry Adjustment reaction with anxiety and depression, acute on chronic condition, present on admission, active Longstanding history of depression, which was managed well with Prozac until for 6 weeks ago. Recent life stressors with sub-optimal coping skills. No prior at times of self-harm. - Resume [employer] regimen of Prozac and add Zyprexa for adjuvant treatment - Suicide precautions, 1:1 status - Consult Psychiatry, Dr. Scot Steele (will need to call consult in am) - Consult SW, re: discharge, needs psych resources Tobacco dependence (cigarettes), chronic condition, present on admission, active Twenty-eight pack year history of tobacco use. Currently smokes half to 1 pack per day. - Smoking cessation highly encouraged - Nicotine patch Hypothyroidism, chronic condition, present on admission, active - Check TSH level, unknown if controlled. Resume [employer] regimen of levothyroxine Patient wishes to be full code. Designates her boyfriend, Lucas Schafer, as a proxy decision maker. Home medications reviewed and reconciled accordingly VTE prophylaxis with SCDs. Hold anticoagulation, anti thrombotic scar and NSAIDs at this time. Quality VTE Deep Vein Thrombosis/Pulmonary Embolism Present on Admission: No
[2019-05-20] MEDS: KCL 20 MEQ IN NS 1,000 ML 150 MEQ IV (05:47)
--- NOTE | 2019-05-20 05:58 | PC.NURSE ---
Patient is A/Ox4, drowsy, but rouses easily and follows directions. Reports tinnitis has decreased, but still present. SR, BP 90s-100s/40s-50s with MAP >60. Denies dizziness when up to BSC. Voided 250ml concentrated urine after bladder scanned. Denies nausea or pain. K+ rider in addition to 20Meq K+ in IVF given. Labs drawn as ordered. Poison center updated.
[2019-05-20 06:56] LABS: Add Manual Diff / Slide Review NO; Basophils Absolute Auto 0 /uL (0-100); Basophils Percent Auto 0.6 % (0-2); Eosinophils Absolute Auto 200 /uL (0-450); Eosinophils Percent Auto 3.1 % (2-4); Hematocrit 34.7 % (36-46); Hemoglobin 11.7 g/dL (12.0-16.0); Lymphocytes Absolute Auto 2600 /uL (1100-4500); Lymphocytes Percent Auto 48.4 % (25-40); Mean Corpuscular HGB Conc 33.8 % (30-36); Mean Corpuscular Hemoglobin 31.4 PG (26-34); Mean Corpuscular Volume 92.9 fL (80-100); Monocytes Absolute Auto 400 /uL (0-900); Monocytes Percent Auto 8.4 % (3-14); Neutrophils Absolute Auto 2100 /uL (1500-7000); Neutrophils Percent Auto 39.5 % (50-75); Platelet Count 272 X10^3/uL (150-400); Red Blood Cell Count 3.73 X10^6/uL (4.0-5.2); Red Cell Distribution Width 12.9 % (11.6-14.8); White Blood Cell Count 5.3 X10^3/uL (4.5-11.0)
[2019-05-20 07:05] LABS: Alanine Aminotransferase 13 IU/L (9-52); Albumin 3.1 g/dL (3.5-5.0); Albumin Globulin Ratio 1.1 (1.0-2.8); Alkaline Phosphatase 47 U/L (38-126); Aspartate Aminotransferase 17 IU/L (14-36); BUN Creatinine Ratio 11.3 (6-22); Bilirubin Total 0.5 mg/dL (0.2-1.3); Blood Urea Nitrogen 9 mg/dL (7-17); Calcium 8.2 mg/dL (8.4-10.2); Carbon Dioxide 23 mmol/L (22-32); Chloride 112 mmol/L (98-107); Estimated Glomerular Filt Rate > 60.0 mL/min (>60); Globulin 2.8 g/dL (1.7-4.1); Glucose 83 mg/dL (70-100); HEMOLYSIS < 15 (0-50); Potassium 3.9 mmol/L (3.4-5.1); Sodium 142 mmol/L (137-145); Total Protein 5.9 g/dL (6.3-8.2)
[2019-05-20 07:06] LABS: Magnesium 2.1 mg/dL (1.6-2.3)
[2019-05-20 07:35] LABS: TSH w/ Reflex to FT4 0.52 uIU/mL (0.47-4.68)
[2019-05-20] MEDS: NICOTINE 21 MG PATCH TOP (09:14)
[2019-05-20] MEDS: LEVOTHYROXINE 25 MCG TABLET PO (09:15)
[2019-05-20] MEDS: FLUoxetine 20 MG CAPSULE 80 MG PO (09:15)
--- NOTE | 2019-05-20 09:36 | PM.DS.1 ---
History of Present Illness History of Present Illness Date Patient Seen: 05/20/19 Chief complaint: Took too any Asprin Narrative: Written by Kandace ANSARI: The patient is a 39-year-old female with PMH of anxiety, depression, PTSD, hypothyroidism, prior history of heavy ETOH use, and methamphetamine use. The patient presented to the ED out of concern for aspirin overdose. Patient reports ingesting 40-50 tablets of 325 mg of ASA between 9:30 and 10:00 a.m. on 05/19/2019. Ingestion was intentional by patient's report, which she attributes to multiple life stressors, such as moving, lack of employment, and family affairs. Patient states that she has a longstanding history of depression, since childhood. Denies suicidal ideation or prior suicidal at times. There has not been a change in her antidepressants. She reports feeling more depressed in lieu of recent life changes. She has been on Prozac 80 mg for an extended period of time; however, has not taken the medication for the past 30-60 days due to change in insurance. At time of the interview patient has denied desired to harm self. Patient admits to 5 year history of intermittent methamphetamine use (smokes). Last use on day of ED presentation. Within 20 minutes of aspirin ingestion patient reports feeling weak and nauseated. Reports developing symptoms of a headache, diminished hearing, tinnitus, abdominal pain and tingling in hands and feet (bilaterally). Patient's boyfriend has learned of the ingestion and brought patient to the ED. Patient does report 1 episode of hematemesis. Patient did not exhibit neurological manifestations of confusion, slurred speech or hallucinations. She was not obtunded and did not suffer from seizure activity. Salicylate level on presentation to the ED was 39.8. ED presentation and workup Labs, 05/19 @ 1400 WBC 9.1 HGB 13.7 PLT 331 PT 12.6 INR 1.1 NA 140 K 4.0 Cl 107 Ca 9.9 Glu 86 CO2 21 BUN 9 Cr 0.7 AST 19 ALT 11 Alk Phos 62 T.Bili 0.5 Lipase 83 Lactate 0.8 Trop < 0.012 UA unremarkable for infection, urine pH 5.5 Salicylate level trend 39.8 -> 38.7 -> 34.4 -> 29.5 Acetaminophen level less than 10 UDS positive for amphetamines, methamphetamine ABG, 05/19 @ 14:49... pH 7.42 pCO2 33.1 pO2 102 HCO3 22 CXR no acute cardiopulmonary findings Discharge Providers Provider Date of admission: 05/19/19 16:59 Discharge Date: 05/20/19 Primary care physician: Joseph Gallagher MD Consults: 05/19/19 18:34 Consult to Pressure Tank Operator Routine Comment: suicidal ideation Discharge provider: Alondra Flores DO Summary Hospital Course Discharge Diagnosis: 1. Salicylate poisoning, secondary to attempted suicide, present on admission. Resolved. 2. Suicide attempts by salicylate overdose, acute condition, present on admission. Resolved. 3. Adjustment reaction with anxiety and depression, acute on chronic, present on admission. Active. 4. Tobacco dependence (cigarettes), chronic, present on admission. Stable. 5. Hypothyroidism, chronic, present on admission. Stable. 6. Methamphetamine abuse, likely chronic, present on admission. Stable. Hospital Course: Suki Lantigua is a 39-year-old female with a past medical history significant for of anxiety, depression, PTSD, hypothyroidism, prior history of heavy ETOH use, and methamphetamine use who presented to the ED out of concern for aspirin overdose. 1. Salicylate poisoning, secondary to attempted suicide, present on admission. Resolved. -Initial labs fairly normal. There were no overt electrolyte abnormalities. Borderline metabolic acidosis, CO2 21. Lactate WNL. No leukocytosis or thrombocytopenia. Renal and liver function within normal limits. patient is not exhibiting any signs of end-organ damage, rhabdo mild losses, pulmonary edema, cerebral edema, or renal failure. She has not had any seizure activity. -Aggressive IVF resuscitation and serum alkalization, started on D5 w/ 3 amps of bicarb and KCl, to continue until salicylate level is less than 30. Thereafter, will change to an isotonic fluid at a rate to maintain urine output of 2-3 mls per kg per hour. -Continued to monitor and correct electrolyte and metabolic abnormalities. -Continued supportive care: antiemetics as needed, benzodiazepines as needed for seizure activity. -Initial salicylate level 39.8. Trended until normalized with salicylate level now 17.0 -Poison control was contacted and provided alkalization/salicylate poisoning protocol. Alkalinization was completed on 05/19/19 at 22:30. Patient was transitioned to normal saline with 20 KCL at 150 per hour. She initially has low urine output but this picked up over the course of her hospitalization. Her BMP, Mag, and ABG checked post alkalinization, remained stable. Continued to trend electrolytes and replete accordingly. Patient did require a 20 KCL rider in addition to isotonic fluids with KCl. Patient had no neurological changes overnight. No further episodes of hematemesis. No arrhythmia. She is in sinus rhythm with heart rate in the 90s. SBP mid 90s to low 100 mmHg. Patient reports dizziness with position change. Tinnitus has improved, but still present. Nausea has subsided. Tingling in hands and feet has also improved. She has sufficiently awake and coherent. GCS is 15. Tolerated advancement of diet. 2. Acute intentional suicide attempt by salicylate overdose, present on admission. Resolved. -No prior history of self-harm. Risk factors of depression and family history of psychiatric illness. -Continued suicide precautions and 1:1 supervision. -Consulted AUTO SLIP COVER INSTALLER who provided resources and developed a safety plan. We appreciate her time and recommendations. 3. Adjustment reaction with anxiety and depression, acute on chronic, present on admission. Active. -Longstanding history of depression, which was managed well with Prozac until for 6 weeks ago. Recent life stressors with sub-optimal coping skills. No prior attempts of self-harm. -Continued fluoxetine 80 mg daily. Received olanzapine 5 mg PO x1 for insomnia. -Continued suicide precautions and 1:1 supervision. -Consulted AUTO SLIP COVER INSTALLER who provided a CD assessment and psychiatric resources. We appreciate her time and recommendations. 4. Tobacco dependence (cigarettes), chronic, present on admission. Stable. -Patient with a 28 pack year history of tobacco use. Currently smokes 0.5-1 pack per day. -Discussed and highly recommended tobacco cessation. -Ordered nicotine patch daily as needed for nicotine withdrawal. 5. Hypothyroidism, chronic, present on admission. Stable. -TSH level normal at 0.52. -Continued home levothyroxine 25 mcg daily. 6. Methamphetamine abuse, likely chronic, present on admission. Stable. -Likely chronic and longstanding use as patient readily admits that is to using on and off. Discussed risks associated with methamphetamine use and recommended indefinite cessation. -Patient verbalizes understanding and reports she plans to abstain. Status at Discharge Functional status at discharge: independent ambulation Exam Vital Signs (past 8 hours): - 05/20/19 04:00 05/20/19 05:00 05/20/19 06:00 Temperature 98.7 F 98.0 F Pulse Rate 78 83 77 Respiratory Rate 18 17 17 Blood Pressure 95/55 L 101/55 L 91/54 L Pulse Oximetry 95 94 96 05/20/19 07:00 05/20/19 07:44 05/20/19 08:00 Temperature 99.6 F 98.4 F Pulse Rate 87 81 Respiratory Rate 18 16 Blood Pressure 89/59 L 87/41 L Pulse Oximetry 94 94 05/20/19 09:06 05/20/19 10:01 05/20/19 11:08 Temperature 99.6 F 99.2 F Pulse Rate 98 H 84 92 H Respiratory Rate 18 20 16 Blood Pressure 98/57 L 100/54 L 112/72 Pulse Oximetry 95 96 98 05/20/19 11:19 Temperature 98.9 F Pulse Rate Respiratory Rate Blood Pressure Pulse Oximetry Oxygen Delivery Method Room Air Oxygen Flow Rate 0 Narrative Exam Narrative: General: Middle-aged female sitting in bed and in no acute distress, mildly disheveled, well-developed, well-nourished, appropriately interactive. HEENT: Normocephalic, atraumatic. External ears without defect. Pupils equal, round, and reactive to light. Anicteric sclerae, moist conjunctivae, and no lid lag. Oropharynx free of erythema and cobble stoning with moist mucosa. Poor dentition. Mild tinnitus. Neck: Supple with full range of motion. No jugular venous distension. No bruits. No lymphadenopathy or thyromegaly. Cardiovascular: Regular rate and rhythm without murmurs, rubs, or gallops appreciated Pulmonary: Clear to auscultation bilaterally without crackles, wheezes, or rhonchi. Normal respiratory effort with no use of accessory muscles. Abdomen: Soft, bowel sounds present, nontender, nondistended. No hepatosplenomegaly or masses appreciated. Extremities: No clubbing, cyanosis, or edema. Skin: Normal temperature, turgor, and texture; no rash, ulcers, or subcutaneous nodules appreciated. Neurological: Cranial nerves grossly intact. Normal muscle strength, tone, and bulk. Reflexes, coordination, and sensory function within normal limits. No known gait impairment. Psychiatric: Depressed and mildly anxious mood and normal affect. Alert and oriented to person, place, and time. Objective Labs Result Diagrams: 05/20/19 06:20 05/20/19 12:40 Labs: Laboratory Results - last 24 hr 05/19/19 05/19/19 05/19/19 14:00 14:00 14:00 WBC 9.1 RBC 4.30 Hgb 13.7 Hct 39.5 MCV 91.7 MCH 31.8 MCHC 34.7 RDW 13.1 Plt Count 331 Neut % (Auto) 60.2 Lymph % (Auto) 31.5 [place] % (Auto) 6.3 Eos % (Auto) 1.6 L Baso % (Auto) 0.4 Neut # (Auto) 5500 Lymph # (Auto) 2900 [place] # (Auto) 600 Eos # (Auto) 100 Baso # (Auto) 0 PT INR ABG pH ABG pCO2 ABG pO2 ABG HCO3 ABG Total CO2 ABG O2 Saturation ABG Base Excess FiO2 Sodium 141 Potassium 4.0 Chloride 107 Carbon Dioxide 21 L BUN 9 Creatinine 0.70 Estimated GFR > 60.0 BUN/Creatinine Ratio 12.9 Glucose 86 Lactate Calcium 9.9 Magnesium Total Bilirubin 0.5 Conjugated Bilirubin 0.0 Unconjugated Bilirubin 0.3 AST 19 ALT 11 Alkaline Phosphatase 62 Total Creatine Kinase 88 CK-MB (CK-2) TNP CK-MB (CK-2) Rel Index TNP Troponin I < 0.012 Total Protein 7.3 Albumin 4.1 Globulin 3.2 Albumin/Globulin Ratio 1.3 Lipase 83 TSH Urine Color Urine Appearance Urine pH Ur Specific [place] Urine Protein Urine Glucose (UA) Urine Ketones Urine Occult Blood Urine Nitrate Urine Bilirubin Urine Urobilinogen Ur Leukocyte Esterase Urine Test Nasal Screen MRSA (PCR) Salicylates 39.8 H* Urine Opiates Screen Ur Oxycodone Screen Urine Methadone Screen Acetaminophen < 10 L Ur Barbiturates Screen U Tricyclic Antidepress Ur Phencyclidine Scrn Ur Amphetamines Screen U Methamphetamines Scrn Ur MDMA Scrn (Ecstasy) U Benzodiazepines Scrn Urine Cocaine Screen U Marijuana (THC) Screen Ethyl Alcohol < 10 05/19/19 05/19/19 05/19/19 14:00 14:00 14:00 WBC RBC Hgb Hct MCV MCH MCHC RDW Plt Count Neut % (Auto) Lymph % (Auto) [place] % (Auto) Eos % (Auto) Baso % (Auto) Neut # (Auto) Lymph # (Auto) [place] # (Auto) Eos # (Auto) Baso # (Auto) PT INR ABG pH ABG pCO2 ABG pO2 ABG HCO3 ABG Total CO2 ABG O2 Saturation ABG Base Excess FiO2 Sodium Potassium Chloride Carbon Dioxide BUN Creatinine Estimated GFR BUN/Creatinine Ratio Glucose Lactate Calcium Magnesium Total Bilirubin Conjugated Bilirubin Unconjugated Bilirubin AST ALT Alkaline Phosphatase Total Creatine Kinase CK-MB (CK-2) CK-MB (CK-2) Rel Index Troponin I Total Protein Albumin Globulin Albumin/Globulin Ratio Lipase TSH Urine Color Yellow Urine Appearance Clear Urine pH 5.5 Ur Specific [place] <=1.005 Urine Protein Negative Urine Glucose (UA) Negative Urine Ketones Negative Urine Occult Blood Negative Urine Nitrate Negative Urine Bilirubin Negative Urine Urobilinogen 0.2 Ur Leukocyte Esterase Negative Urine Test Negative Nasal Screen MRSA (PCR) Salicylates Urine Opiates Screen Negative Ur Oxycodone Screen Negative Urine Methadone Screen Negative Acetaminophen Ur Barbiturates Screen Negative U Tricyclic Antidepress Negative Ur Phencyclidine Scrn Negative Ur Amphetamines Screen Positive H U Methamphetamines Scrn Positive H Ur MDMA Scrn (Ecstasy) Negative U Benzodiazepines Scrn Negative Urine Cocaine Screen Negative U Marijuana (THC) Screen Negative Ethyl Alcohol 05/19/19 05/19/19 05/19/19 14:49 15:00 15:00 WBC RBC Hgb Hct MCV MCH MCHC RDW Plt Count Neut % (Auto) Lymph % (Auto) [place] % (Auto) Eos % (Auto) Baso % (Auto) Neut # (Auto) Lymph # (Auto) [place] # (Auto) Eos # (Auto) Baso # (Auto) PT 12.6 INR 1.1 ABG pH 7.42 ABG pCO2 33.1 L ABG pO2 102 H ABG HCO3 22 ABG Total CO2 22 ABG O2 Saturation 98 ABG Base Excess -3.0 L FiO2 0.21 Sodium Potassium Chloride Carbon Dioxide BUN Creatinine Estimated GFR BUN/Creatinine Ratio Glucose Lactate 0.8 Calcium Magnesium Total Bilirubin Conjugated Bilirubin Unconjugated Bilirubin AST ALT Alkaline Phosphatase Total Creatine Kinase CK-MB (CK-2) CK-MB (CK-2) Rel Index Troponin I Total Protein Albumin Globulin Albumin/Globulin Ratio Lipase TSH Urine Color Urine Appearance Urine pH Ur Specific [place] Urine Protein Urine Glucose (UA) Urine Ketones Urine Occult Blood Urine Nitrate Urine Bilirubin Urine Urobilinogen Ur Leukocyte Esterase Urine Test Nasal Screen MRSA (PCR) Salicylates Urine Opiates Screen Ur Oxycodone Screen Urine Methadone Screen Acetaminophen Ur Barbiturates Screen U Tricyclic Antidepress Ur Phencyclidine Scrn Ur Amphetamines Screen U Methamphetamines Scrn Ur MDMA Scrn (Ecstasy) U Benzodiazepines Scrn Urine Cocaine Screen U Marijuana (THC) Screen Ethyl Alcohol 05/19/19 05/19/19 05/19/19 16:09 18:02 18:02 WBC RBC Hgb Hct MCV MCH MCHC RDW Plt Count Neut % (Auto) Lymph % (Auto) [place] % (Auto) Eos % (Auto) Baso % (Auto) Neut # (Auto) Lymph # (Auto) [place] # (Auto) Eos # (Auto) Baso # (Auto) PT INR ABG pH ABG pCO2 ABG pO2 ABG HCO3 ABG Total CO2 ABG O2 Saturation ABG Base Excess FiO2 Sodium 142 Potassium 3.7 Chloride 109 H Carbon Dioxide 23 BUN Creatinine Estimated GFR BUN/Creatinine Ratio Glucose Lactate Calcium Magnesium Total Bilirubin Conjugated Bilirubin Unconjugated Bilirubin AST ALT Alkaline Phosphatase Total Creatine Kinase CK-MB (CK-2) CK-MB (CK-2) Rel Index Troponin I Total Protein Albumin Globulin Albumin/Globulin Ratio Lipase TSH Urine Color Urine Appearance Urine pH Ur Specific [place] Urine Protein Urine Glucose (UA) Urine Ketones Urine Occult Blood Urine Nitrate Urine Bilirubin Urine Urobilinogen Ur Leukocyte Esterase Urine Test Nasal Screen MRSA (PCR) Salicylates 38.7 H* 34.4 H* Urine Opiates Screen Ur Oxycodone Screen Urine Methadone Screen Acetaminophen Ur Barbiturates Screen U Tricyclic Antidepress Ur Phencyclidine Scrn Ur Amphetamines Screen U Methamphetamines Scrn Ur MDMA Scrn (Ecstasy) U Benzodiazepines Scrn Urine Cocaine Screen U Marijuana (THC) Screen Ethyl Alcohol 05/19/19 05/19/19 05/19/19 18:06 20:24 20:24 WBC RBC Hgb Hct MCV MCH MCHC RDW Plt Count Neut % (Auto) Lymph % (Auto) [place] % (Auto) Eos % (Auto) Baso % (Auto) Neut # (Auto) Lymph # (Auto) [place] # (Auto) Eos # (Auto) Baso # (Auto) PT INR ABG pH ABG pCO2 ABG pO2 ABG HCO3 ABG Total CO2 ABG O2 Saturation ABG Base Excess FiO2 Sodium 140 Potassium 3.4 Chloride 110 H Carbon Dioxide 25 BUN 9 Creatinine 0.80 Estimated GFR > 60.0 BUN/Creatinine Ratio 11.3 Glucose 98 Lactate Calcium 8.4 Magnesium Total Bilirubin Conjugated Bilirubin Unconjugated Bilirubin AST ALT Alkaline Phosphatase Total Creatine Kinase CK-MB (CK-2) CK-MB (CK-2) Rel Index Troponin I Total Protein Albumin Globulin Albumin/Globulin Ratio Lipase TSH Urine Color Urine Appearance Urine pH Ur Specific [place] Urine Protein Urine Glucose (UA) Urine Ketones Urine Occult Blood Urine Nitrate Urine Bilirubin Urine Urobilinogen Ur Leukocyte Esterase Urine Test Nasal Screen MRSA (PCR) Negative for mrsa Salicylates 29.5 H Urine Opiates Screen Ur Oxycodone Screen Urine Methadone Screen Acetaminophen Ur Barbiturates Screen U Tricyclic Antidepress Ur Phencyclidine Scrn Ur Amphetamines Screen U Methamphetamines Scrn Ur MDMA Scrn (Ecstasy) U Benzodiazepines Scrn Urine Cocaine Screen U Marijuana (THC) Screen Ethyl Alcohol 05/19/19 05/20/19 05/20/19 22:49 00:25 00:25 WBC RBC Hgb Hct MCV MCH MCHC RDW Plt Count Neut % (Auto) Lymph % (Auto) [place] % (Auto) Eos % (Auto) Baso % (Auto) Neut # (Auto) Lymph # (Auto) [place] # (Auto) Eos # (Auto) Baso # (Auto) PT INR ABG pH 7.44 ABG pCO2 34.8 L ABG pO2 85 ABG HCO3 24 ABG Total CO2 25 ABG O2 Saturation 97 ABG Base Excess 0.0 FiO2 21 Sodium 140 Potassium 3.4 Chloride 110 H Carbon Dioxide 25 BUN 9 Creatinine 0.80 Estimated GFR > 60.0 BUN/Creatinine Ratio 11.3 Glucose 77 Lactate Calcium 8.2 L Magnesium 2.1 Total Bilirubin Conjugated Bilirubin Unconjugated Bilirubin AST ALT Alkaline Phosphatase Total Creatine Kinase CK-MB (CK-2) CK-MB (CK-2) Rel Index Troponin I Total Protein Albumin Globulin Albumin/Globulin Ratio Lipase TSH Urine Color Urine Appearance Urine pH Ur Specific [place] Urine Protein Urine Glucose (UA) Urine Ketones Urine Occult Blood Urine Nitrate Urine Bilirubin Urine Urobilinogen Ur Leukocyte Esterase Urine Test Nasal Screen MRSA (PCR) Salicylates Urine Opiates Screen Ur Oxycodone Screen Urine Methadone Screen Acetaminophen Ur Barbiturates Screen U Tricyclic Antidepress Ur Phencyclidine Scrn Ur Amphetamines Screen U Methamphetamines Scrn Ur MDMA Scrn (Ecstasy) U Benzodiazepines Scrn Urine Cocaine Screen U Marijuana (THC) Screen Ethyl Alcohol 05/20/19 05/20/19 05/20/19 06:20 06:20 06:20 WBC 5.3 RBC 3.73 L Hgb 11.7 L Hct 34.7 L MCV 92.9 MCH 31.4 MCHC 33.8 RDW 12.9 Plt Count 272 Neut % (Auto) 39.5 L D Lymph % (Auto) 48.4 H [place] % (Auto) 8.4 Eos % (Auto) 3.1 Baso % (Auto) 0.6 Neut # (Auto) 2100 Lymph # (Auto) 2600 [place] # (Auto) 400 Eos # (Auto) 200 Baso # (Auto) 0 PT INR ABG pH ABG pCO2 ABG pO2 ABG HCO3 ABG Total CO2 ABG O2 Saturation ABG Base Excess FiO2 Sodium 142 Potassium 3.9 Chloride 112 H Carbon Dioxide 23 BUN 9 Creatinine 0.80 Estimated GFR > 60.0 BUN/Creatinine Ratio 11.3 Glucose 83 Lactate Calcium 8.2 L Magnesium 2.1 Total Bilirubin 0.5 Conjugated Bilirubin Unconjugated Bilirubin AST 17 ALT 13 Alkaline Phosphatase 47 Total Creatine Kinase CK-MB (CK-2) CK-MB (CK-2) Rel Index Troponin I Total Protein 5.9 L Albumin 3.1 L Globulin 2.8 Albumin/Globulin Ratio 1.1 Lipase TSH Urine Color Urine Appearance Urine pH Ur Specific [place] Urine Protein Urine Glucose (UA) Urine Ketones Urine Occult Blood Urine Nitrate Urine Bilirubin Urine Urobilinogen Ur Leukocyte Esterase Urine Test Nasal Screen MRSA (PCR) Salicylates 17.0 Urine Opiates Screen Ur Oxycodone Screen Urine Methadone Screen Acetaminophen Ur Barbiturates Screen U Tricyclic Antidepress Ur Phencyclidine Scrn Ur Amphetamines Screen U Methamphetamines Scrn Ur MDMA Scrn (Ecstasy) U Benzodiazepines Scrn Urine Cocaine Screen U Marijuana (THC) Screen Ethyl Alcohol 05/20/19 06:20 WBC RBC Hgb Hct MCV MCH MCHC RDW Plt Count Neut % (Auto) Lymph % (Auto) [place] % (Auto) Eos % (Auto) Baso % (Auto) Neut # (Auto) Lymph # (Auto) [place] # (Auto) Eos # (Auto) Baso # (Auto) PT INR ABG pH ABG pCO2 ABG pO2 ABG HCO3 ABG Total CO2 ABG O2 Saturation ABG Base Excess FiO2 Sodium Potassium Chloride Carbon Dioxide BUN Creatinine Estimated GFR BUN/Creatinine Ratio Glucose Lactate Calcium Magnesium Total Bilirubin Conjugated Bilirubin Unconjugated Bilirubin AST ALT Alkaline Phosphatase Total Creatine Kinase CK-MB (CK-2) CK-MB (CK-2) Rel Index Troponin I Total Protein Albumin Globulin Albumin/Globulin Ratio Lipase TSH 0.52 Urine Color Urine Appearance Urine pH Ur Specific [place] Urine Protein Urine Glucose (UA) Urine Ketones Urine Occult Blood Urine Nitrate Urine Bilirubin Urine Urobilinogen Ur Leukocyte Esterase Urine Test Nasal Screen MRSA (PCR) Salicylates Urine Opiates Screen Ur Oxycodone Screen Urine Methadone Screen Acetaminophen Ur Barbiturates Screen U Tricyclic Antidepress Ur Phencyclidine Scrn Ur Amphetamines Screen U Methamphetamines Scrn Ur MDMA Scrn (Ecstasy) U Benzodiazepines Scrn Urine Cocaine Screen U Marijuana (THC) Screen Ethyl Alcohol Discharge Plan Discharge Plan Patient Disposition: Home Discharge comment: You are being discharged home. You have been prescribed ranitidine 150 mg twice daily for the next 1 week which will help protect your stomach lining and Zofran 4 mg every 6-8 hours as needed for nausea. You have also been provided temporary prescriptions for both your fluoxetine and levothyroxine. Please follow-up with your primary care provider, Dr. Gallagher, in the next 3-5 days regarding her hospitalization. Recommend you establish care with a psychiatrist in the near future and obtain cognitive behavioral therapy for your depression and anxiety. Please avoid using methamphetamines indefinitely as this puts you at high risk of heart attack, stroke, and many cancers especially lung cancer. Discharge Med Rec/Prescriptions Prescriptions: New ranitidine HCl 150 mg capsule 150 mg PO BID Qty: 14 RF: 0 ondansetron HCl [Zofran] 4 mg tablet 4 mg PO Q6-8H PRN (Reason: nausea and vomiting) Qty: 10 RF: 0 Continued fluoxetine [Prozac] 40 mg Capsule 80 mg PO DAILY Qty: 30 RF: 0 levothyroxine 25 mcg Tablet 25 mcg PO DAILY Qty: 30 RF: 0 Discontinued lorazepam [Ativan] 1 mg Tablet 1 mg PO BEDTIME PRN (Reason: Sleep) RF: 0 Follow up/Referrals: Joseph Gallagher MD [Primary Care Provider] - 3-5 Days Provider Discharge Instructions Diet: Diet as Tolerated Diet comment: Slowly advance diet as tolerated Activity: Activity as tolerated Visit Report/Discharge Packet Instructions: DI for Suicidal Ideation-Adult, DI for Aspirin Overdose, Suicidal Ideation-Adult, Methamphetamine, How to Create a Suicide Prevention Safety Plan Discharge Data Primary Care Provider: Joseph Gallagher Discharges patient from system. Discharge Date/Time: 05/20/19 13:40 Quality VTE Deep Vein Thrombosis/Pulmonary Embolism Present on Admission: No
--- NOTE | 2019-05-20 10:45 | PC.NURSE ---
Addendum entered by Becki Méndez R.N. 05/20/19 13:20: Pt with a K of 2.9. IV removed without incident. Given all DC instructions and hard copy scripts. All questions answered. Reserving a cab for pt- she was planning to walk home. Addendum entered by Becki Méndez R.N. 05/20/19 11:24: Pt with a regular diet now. IVF saline locked. BMP to be drawn and plan to DC home today. Original Note: wharf worker with patient. Pt continues to deny suicidal ideations or desire to harm herself. Remains on 1:1 watch. Pt fatigued, falls asleep in conversation, pleasant and cooperative.
[2019-05-20 13:05] LABS: BUN Creatinine Ratio 11.4 (6-22); Blood Urea Nitrogen 8 mg/dL (7-17); Calcium 8.3 mg/dL (8.4-10.2); Carbon Dioxide 22 mmol/L (22-32); Chloride 110 mmol/L (98-107); Estimated Glomerular Filt Rate > 60.0 mL/min (>60); Glucose 106 mg/dL (70-100); HEMOLYSIS < 15 (0-50); Potassium 3.9 mmol/L (3.4-5.1); Sodium 140 mmol/L (137-145)
--- NOTE | 2019-05-20 14:01 | CM.SWNOTE ---
Social Work Note: CD/MH Assessment From H+P Narrative: The patient is a 39-year-old female with PMH of anxiety, depression, PTSD, hypothyroidism, prior history of heavy ETOH use, and methamphetamine use. The patient presented to the ED out of concern for aspirin overdose. Reviewed chart. SW met bedside with pt. Pt explains that she feels remorse about this intentional overdose and denies h/o or current suicidal ideation, no h/o suicide attempt. Pt admits she has PTSD and has struggled w/depression and anxiety since childhood but has never seriously considered suicide or had a plan; she attributes her impulsiveness and desperation to the combination of the following: not taking her Prozac, Ativan and new thyroid medication, fluctuating hormones possibly sec to destiny menopause and hypothyroidism, and multiple life stressors. [place] recently from [place] with her current boyfriend Marlon. They are sleeping in a van parked outside their family's house. They have access to the inside of the house for BR, shower/washer etc.. Pt has a 2-3 year h/o homelessness. She and Marlon met while working for the [employer] and have been together for 2 years. Pt denies current domestic abuse and feels safe being w/current bf. Pt was well established in a medical team in her [place] town in [place], she is making effort, starting w/establishing w/PCP Dr Gallagher ([facility]) to get referrals to OBGYN, ENT and Ortho and has [facility] Medicaid. MH Hx: PTSD from childhood trauma, anxiety w/panic attacks and long standing depression. MH Tx: No inpt stays reported. Long h/o counseling throughout her life d/t traumatic events in childhood. This BB SHOT PACKER unsure whether pt had a psychiatrist in [place]. Pt has an appt. w/[facility] this week. Pt has been on Prozac and takes ativan po bedtime and prn during the day for panic attacks which she explains has kept her mentally stable for a long time. CD: Pt admits to everyday nicotine use and occasional meth use, pt reports her last meth use was a few days before her overdose but before that she hadn't used for 6 mo. Pt denies alcohol use or other substance use. Bf also occasionally uses meth. Pt denies needing substance abuse/treatment resources at this time. Legal: Pt has three children, she became a mom at 17yo. She has a 10, 18, and 23 yo, h/o custody battles. One is living w/her Dad and others are indp. living on their own. Pt says she had full custody of her 18 yo. No pending legal matters. Supports: Pt lists her current bf Marlon as a support and his local family. They are hopeful to move closer to [place] where Marlon's father lives, they have gone through the [place] [facility] and are waiting to hear back. 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 Pt also says that she is in closer contact w/her children lately. She explains she is mortified she did this because she feels her kids need their mom around. This BB SHOT PACKER agreed and commended pt for her survival tactics and resilience. Plan: Pt is remorseful about this intentional OD and admits to trying to throw up right after but couldn't. Pt denies current SI/HI. She and her bf are currently homeless but have the [facility] and have [facility] and the [facility] clinic here in [place]. Pt denies the need for additional resources but is hopeful she can leave w/a Rx for Prozac, Ativan and her new Thyroid med because she has no home meds. She has insurance and can fill these Rx upon DC. This BB SHOT PACKER feels pt is stable to DC home and already has the outpt resource numbers this BB SHOT PACKER would have provided. RN agrees per her discussions w/pt this morning. Tristan Roca arranged to get pt home to [address] [facility]. $7, taxi voucher completed and signed by this BB SHOT PACKER. CARLOS ENRIQUE Villareal
== END 2019-05-20 13:40 | disposition home or self-care (01) | DRG 812 ==
LOC: ED 16:57 → AC 17:01 → ICU 17:48
PROVIDERS: Nurse Practitioner Gerontology; Admitting Provider Internal Medicine; Emergency Provider Emergency Medicine; PCP Internal Medicine; Visit Provider Internal Medicine
DX: T39.012A Poisoning by aspirin, intentional self-harm, initial encounter (principal); F43.23 Adjustment disorder with mixed anxiety and depressed mood; F43.10 Post-traumatic stress disorder, unspecified; T14.91XA Suicide attempt, initial encounter; F15.10 Other stimulant abuse, uncomplicated; E03.9 Hypothyroidism, unspecified; F17.210 Nicotine dependence, cigarettes, uncomplicated
CPT/HCPCS: 36415; 36591; 36600; 71045; 80048; 80051; 80053; 80076; 80305; 80320; 80329; 81003; 81025; 82550; 82805; 82962; 83605; 83690; 83735; 84443; 84484; 85025; 85610; 87797; 93005; 93010; 96365; 96375; 99285; G0480; J2405; J3480